=== PATIENT | male | born 1985 | race Caucasian/White ===

== ENCOUNTER 2019-05-01 09:31 | Day surgery (SDC) | payer BC ==
[~2019-05-01 09:31] MED LIST: Lactated Ringers 1,000 ML IV SCH; Sodium Chloride 0.9% 10 ML Syringe FLUSH PRN
[2019-05-01] MEDS ORDERED: Propofol 200 MG/20 ML SDV ONE (11:49)
[2019-05-01] MEDS ORDERED: fentaNYL 100 MCG/2 ML SDV ONE (11:49)
[2019-05-01] MEDS ORDERED: Midazolam 1 MG/ML 2 ML SDV ONE (11:49)
--- NOTE | 2019-05-01 13:14 | OR ---
PREOPERATIVE DIAGNOSIS: Chronic diarrhea. POSTOPERATIVE DIAGNOSIS: Normal examination of colon and terminal ileum. PROCEDURE PROPOSED: Total flexible colonoscopy with multiple random biopsies. PROCEDURE DONE: Total flexible colonoscopy with multiple colonic biopsies and ileal biopsies. INDICATION: This is a 33-year-old gentleman who had a significant bout of prolonged chronic diarrhea lasting close to a month and he still has some intermittent diarrhea and it is felt that he should be colonoscoped to rule out any bowel disease. TECHNIQUE: The patient was brought to the endoscopy suite, placed in left lateral decubitus position. He was sedated per ST[employer] SEPARATOR with propofol. The flexible video colonoscope was then passed transanally and under visualization advanced to the cecum. I was able to intubate the terminal ileum which appeared entirely normal, and couple of biopsies were taken from that area. The colon itself also appeared totally normal throughout the ascending, transverse, descending, sigmoid, and rectal colon. There was no evidence of any visible colitis, diverticulosis, polyps, or any other abnormalities. Multiple random biopsies were taken from all levels of the colon totaling approximately 10 biopsies. He tolerated the procedure well and the scope was then withdrawn. FINAL IMPRESSION: Normal examination of colon and terminal ileum. Biopsies pending. PLAN: He will be sent a letter with pathology report, and at this point, I feel nothing further needs to be done. SCM: 05/01/2019 12:56:29 MODL: 05/01/2019 13:08:25 /[id number]
[2019-05-01 13:16] VITALS: BP 114/77
== END 2019-05-01 13:49 | disposition home or self-care (01) ==
LOC: VM.SDS 09:31
PROVIDERS: ATTEND Surgery
DX: K52.9 Noninfective gastroenteritis and colitis, unspecified (principal); K21.9 Gastro-esophageal reflux disease without esophagitis; E78.49 Other hyperlipidemia; F20.9 Schizophrenia, unspecified; J30.9 Allergic rhinitis, unspecified; F17.210 Nicotine dependence, cigarettes, uncomplicated; E66.9 Obesity, unspecified; Z68.32 Body mass index [BMI] 32.0-32.9, adult; Z88.0 Allergy status to penicillin; Z88.2 Allergy status to sulfonamides; Z79.899 Other long term (current) drug therapy
CPT/HCPCS: 45380; J2250; J2704; J3010; J7120